=== PATIENT | female | born 1970 | race Caucasian/White ===

== ENCOUNTER 2018-01-21 12:28 | Emergency (ER) | payer OTHER | END 2018-01-21 15:26 | disposition home or self-care (01) | LOC: FTE 12:28 | DX: S10.11XA Abrasion of throat, initial encounter (principal); R06.02 Shortness of breath; X58.XXXA Exposure to other specified factors, initial encounter; Y92.9 Unspecified place or not applicable | CPT/HCPCS: 70490; 71045; 99284-25 ==